=== PATIENT | female | born 1990 ===

== ENCOUNTER 2016-10-17 05:54 | Inpatient (IN) | payer OTHER ==
[2016-10-16 16:19] LABS: Hematocrit 35 % (35-47); Hemoglobin 11.5 g/dl (12.0-16.0); Mean Corpuscular HGB Conc 33 g/dl (31-36); Mean Corpuscular Hemoglobin 29 pg (27-31); Mean Corpuscular Volume 88 fL (80-97); Mean Platelet Volume 10 um3 (7.4-10.4); Red Blood Count 3.93 10^6/ul (4.0-5.4); Red Cell Distribution Width 13 % (10.5-15); White Blood Count 8.6 10^3/ul (3.5-10.8)
[2016-10-17] MEDS ORDERED: Sodium Citrate/Citric Acid* 15 ML UDC ONE (06:26)
[2016-10-17] MEDS ORDERED: ceFOXitin 2 GM IVPREMIX* 2 GM/50 ML BAG ONE (06:26)
[2016-10-17] MEDS ORDERED: OXYTOCIN* 10 UNITS/ML 1 ML VIAL ONE (07:42)
[2016-10-17] MEDS ORDERED: Morphine PF AMP (0.5MG/ML)* 5 MG/10 ML AMP ONE (07:42)
[2016-10-17] MEDS ORDERED: Buffered Lidocaine 1% SYRIN* 3 ML/SYR SYRINGE INTRADERM ONE (08:29)
[2016-10-17] MEDS ORDERED: Sodium Citrate/Citric Acid* 15 ML UDC PO ONE (08:29)
[2016-10-17] MEDS ORDERED: DiMENhydriNATE IV* 50 MG/ML VIAL IV PUSH PRN (08:30)
[2016-10-17] MEDS ORDERED: fentaNYL* 50 MCG/ML 2 ML VIAL (100 MCG VIAL) IV PRN (08:30)
[2016-10-17] MEDS ORDERED: Famotidine IV* 10 MG/ML 2 ML (20 mg) ONE (08:32)
[2016-10-17] MEDS ORDERED: Ondansetron INJ* 2 MG/ML VIAL ONE (08:32)
[2016-10-17] MEDS ORDERED: Ketorolac INJ* 30 MG/ML 1 ML VIAL ONE (08:45)
[2016-10-17] MEDS: Ketorolac INJ* 30 MG/ML 1 ML VIAL IV SCH ×3 (08:50→21:16)
[2016-10-17] MEDS ORDERED: Nalbuphine* 20 MG/ML 1 ML VIAL IV PRN (08:58)
[2016-10-17] MEDS ORDERED: PROCHLORPERAZINE INJ 5 MG/ML 2 ML VIAL IV PRN (08:58)
[2016-10-17] MEDS ORDERED: HYDROcodone/ACETAMIN 5-325 MG* 1 TAB PO PRN ×2 (08:58)
[2016-10-17] MEDS ORDERED: Ondansetron INJ* 2 MG/ML VIAL IV PRN (08:58)
[2016-10-17] MEDS ORDERED: diPHENhydraMINE IV* 50 MG/ML 1 ml VIAL (BENADRYL) IV PRN (08:58)
[2016-10-17] MEDS ORDERED: Naloxone* 0.4 MG/ML 1 ML VIAL IV PRN (08:58)
[2016-10-17] MEDS ORDERED: Scopolamine 1.5 mg* PATCH TRANSDERM SCH (09:00)
[2016-10-17] MEDS: Acetaminophen TAB* 325 MG PO SCH ×4 (09:00→21:17)
[2016-10-17] MEDS ORDERED: Glycerin ADULT SUPP PR PRN (09:32)
[2016-10-17] MEDS ORDERED: Dibucaine 1% 28.35 GM TUBE PR PRN (09:32)
[2016-10-17] MEDS ORDERED: Witch Hazel PAD* JAR TOPICAL PRN (09:32)
[2016-10-17] MEDS ORDERED: Oxytocin in LR* 20 UNITS/1,000 ML BAG IVPB SCH (10:00)
[2016-10-17] MEDS ORDERED: Scopolamine 1.5 mg* PATCH ONE (11:06)
[2016-10-17] MEDS: Simethicone CHEW TAB* 80 MG PO SCH ×3 (12:34→21:17)
[2016-10-17] MEDS: Docusate CAP* 100 MG PO SCH ×2 (13:59→21:17)
[2016-10-18] MEDS ORDERED: Acetaminophen TAB* 325 MG PO PRN
[2016-10-18] MEDS ORDERED: oxyCODONE/Acetamin 5/325 MG* TAB PO PRN
--- NOTE | 2016-10-18 02:12 | OP ---
DATE OF OPERATION: 10/17/16 - ROOM #[id number]-115 DATE OF : [birth year] SURGEON: Eva Mares MD MEDICAL AIDES TEACHER: Nga Vieira CNM ANESTHESIOLOGIST: Dr. Beasley. ANESTHESIA: Spinal. PRE-OP DIAGNOSIS: Intrauterine at 39-1/7th weeks, edgar breech, right sacrum anterior. POST-OP DIAGNOSIS: Intrauterine at 39-1/7th weeks, edgar breech right sacrum anterior, delivered. OPERATIVE PROCEDURE: Primary low transverse section. FINDINGS: Revealed right sacrum anterior edgar breech female infant with Apgars 9 at 1 minute and 9 at 5 minutes, weight was 7 pounds 6 ounces. No nuchal cord. No meconium in the fluid. Clear amniotic fluid. Normal- appearing tubes and ovaries bilaterally. Normal uterine cavity without evidence of septum or abnormalities within uterine cavity itself. Placenta was manually extracted. Three-vessel cord intact, normal appearance. ESTIMATED BLOOD LOSS: 600 cc. FLUIDS: 3500 cc of crystalloid. URINE OUTPUT: 400 cc of clear yellow urine. COMPLICATIONS: None apparent. DISPOSITION: Stable to recovery room. DESCRIPTION OF PROCEDURE: The patient was placed in dorsal lithotomy position. Anesthesia was tested to appropriate level after the abdomen had been prepped and draped. The patient was then identified with universal protocol for correct procedure, patient, and position. Incision was made 2 fingerbreadths above the pubic symphysis, this was carried through down to the fascia, and fascia was scored in the line and extended laterally and superiorly. Using correct Gabriel scissors, the fascia was with blunt and sharp dissection from the rectus muscle both superiorly and inferiorly. The peritoneum was then entered bluntly. Peritoneal incision was extended both superiorly and inferiorly while directly visualizing bowel and bladder using Metzenbaum scissors. Bladder blade was inserted. Lower uterine segment was identified, tented up with an Allis, and incised using a scalpel. This was carried down for an amniotomy. The incision was then extended laterally and superiorly using bandage scissors. The baby was then delivered in a standard fashion, right, then left shoulder delivered. Head delivered spontaneously. There was no nuchal cord. Cord was milked and then clamped and infant was handed off to awaiting key worker. Appropriate cord blood was then obtained. The placenta was then manually extracted and noted to be intact three-vessel cord with normal appearance. The uterus was exteriorized, wrapped in warm moist laparotomy sponge. Tubes and ovaries were noted to have a normal appearance. The uterine cavity was swabbed and noted to be free of any retained placental membranes or placenta. The cavity was noted to have a normal contour. The uterine incision itself was then reapproximated in 2 layers, first layer running locked 0 Vicryl, running imbricated 0 Vicryl for second layer. Uterus was returned intra-abdominally. Colic gutters were lavaged. Hemostasis was assured at the hysterotomy site. The peritoneum was then reapproximated using 3 -0 Vicryl in a running fashion for complete closure of the peritoneum. The subfascial area was then visualized and noted to be hemostatic. The fascia was then reapproximated using 0 Vicryl x2 in a running fashion. Subcu was lavaged. Hemostasis assured with Bovie coagulation, and the skin was then reapproximated using 4-0 Monocryl in a subcuticular fashion. Mastisol and Steri 's were applied. All sponge, needle, instrument, and blade counts were correct throughout the case. The patient tolerated the procedure well and went to recovery room in stable condition. [id number]/[facility] #: [id number] DORA
[2016-10-18] MEDS: Ketorolac INJ* 30 MG/ML 1 ML VIAL IV SCH (03:08)
[2016-10-18 06:44] LABS: Hematocrit 29 % (35-47); Hemoglobin 9.3 g/dl (12.0-16.0); Mean Corpuscular HGB Conc 33 g/dl (31-36); Mean Corpuscular Hemoglobin 29 pg (27-31); Mean Corpuscular Volume 89 fL (80-97); Mean Platelet Volume 10 um3 (7.4-10.4); Red Blood Count 3.22 10^6/ul (4.0-5.4); Red Cell Distribution Width 14 % (10.5-15); White Blood Count 8.8 10^3/ul (3.5-10.8)
[2016-10-18] MEDS: oxyCODONE/Acetamin 5/325 MG* TAB PO PRN ×3 (08:17→18:00)
[2016-10-18] MEDS: Simethicone CHEW TAB* 80 MG PO SCH ×4 (08:33→21:28)
[2016-10-18] MEDS: Ferrous Gluconate TAB* 324 MG TAB PO SCH ×2 (08:33→21:28)
[2016-10-18] MEDS: Docusate CAP* 100 MG PO SCH ×3 (08:33→21:28)
[2016-10-18] MEDS: Ibuprofen TAB* 600 MG PO PRN ×3 (09:20→21:29)
[2016-10-19] MEDS: oxyCODONE/Acetamin 5/325 MG* TAB PO PRN ×3 (04:02→21:44)
[2016-10-19] MEDS: Ibuprofen TAB* 600 MG PO PRN ×3 (04:07→20:20)
[2016-10-19] MEDS: Ferrous Gluconate TAB* 324 MG TAB PO SCH ×2 (09:14→20:20)
[2016-10-19] MEDS: Docusate CAP* 100 MG PO SCH ×3 (09:14→20:20)
[2016-10-19] MEDS: Simethicone CHEW TAB* 80 MG PO SCH ×4 (09:14→20:20)
[2016-10-20 08:09] VITALS: BP 125/86
[2016-10-20] MEDS ORDERED: Scopolomine PATCH Remove* 1 NOTE MISC PATCH OFF SCH (09:00)
[2016-10-20] MEDS: Simethicone CHEW TAB* 80 MG PO SCH (09:16)
[2016-10-20] MEDS: Ferrous Gluconate TAB* 324 MG TAB PO SCH (09:17)
[2016-10-20] MEDS: Ibuprofen TAB* 600 MG PO PRN (09:17)
[2016-10-20] MEDS: Docusate CAP* 100 MG PO SCH (09:18)
== END 2016-10-20 11:55 | disposition home or self-care (01) | DRG 540 ==
LOC: MCHOB 05:54
PROVIDERS: ADMIT Obstetrics & Gynecology; ATTEND Obstetrics & Gynecology
PROC: 10907ZC Drainage of Amniotic Fluid, Therapeutic from Products of Conception, Via Natural or Artificial Opening (ICD-10-PCS; 2016-10-17)
PROC: 10D00Z1 Extraction of Products of Conception, Low, Open Approach (ICD-10-PCS; principal; 2016-10-17 07:45)
DX: O32.1XX0 Maternal care for breech presentation, not applicable or unspecified (principal); Z37.0 Single live birth; Z3A.39 39 weeks gestation of pregnancy
CPT/HCPCS: 36415; 85025; 86850; 86900; 86901; A9270-GY; J0694; J1885; J2405; J2590